=== PATIENT | female | born 1945 | race Caucasian/White ===

== ENCOUNTER 2021-08-21 02:21 | Inpatient (IN) | payer MEDICARE ==
[~2021-08-21] VITALS: Ht 162.6 cm; Wt 79.8 kg
[~2021-08-21 02:21] MED LIST: AMOCLA875 PO; ASPI325EC PO; ASPI81EC PO; Aldactone25 MG PO; BUDE6HFA; CYCL0.05OP; FLUC100 PO; FURO40; GABA600 PO; HYDCHL25 PO; HYDMOR4; KETO10 PO; LISHYD2025 PO; LOSA50; METO10; Metoprolol Tar100 MG PO; NASACORT10.8 ML; NYST100SU MT; PENVK500 PO; POTA10T PO; POTCHL20ER; PROM25 PO; SPIR25 PO; TAMO20 PO; Toradol10 MG PO; ZOLP10 PO; [UNRECOGNIZED DRUG - REMARK]
[2021-08-21 02:48] LABS: BASOPHILS ABSOLUTE AUTO 0.02 K/mm3 (0.00-0.23); BASOPHILS PERCENT AUTO 0 % (0-2); EOSINOPHILS ABSOLUTE AUTO 0.05 K/mm3 (0.00-0.68); EOSINOPHILS PERCENT AUTO 0 % (0-6); Hematocrit 43.5 % (33.0-51.0); Hemoglobin 14.6 g/dL (11.5-16.0); IMMATURE GRAN ABSOLUTE AUTO 0.04 K/mm3 (0.00-0.10); IMMATURE GRAN PERCENT AUTO 0 % (0-1); LYMPHOCYTES ABSOLUTE AUTO 1.27 K/mm3 (0.84-5.20); LYMPHOCYTES PERCENT AUTO 9 % (21-46); MONOCYTES ABSOLUTE AUTO 0.78 K/mm3 (0.16-1.47); MONOCYTES PERCENT AUTO 6 % (4-13); Mean Corpuscular HGB 32.6 pg (26.0-34.0); Mean Corpuscular HGB Conc 33.6 g/dL (31.5-36.5); Mean Corpuscular Volume 97 fL (80-100); Mean Platelet Volume 10.4 fL (9.1-12.4); NEUTROPHILS PERCENT AUTO 85 % (41-73); Platelet Count 204 K/mm3 (150-400); RDW Coefficient Variation 12.5 % (11.7-14.2); RDW Standard Deviation 44.8 fL (35.1-46.3); Red Blood Cell Count 4.48 M/mm3 (3.80-5.20); White Blood Cell Count 14.06 K/mm3 (4.00-11.30)
[2021-08-21 03:08] LABS: Albumin, Blood 3.7 g/dL (3.4-5.0); Albumin/Globulin Ratio 1.1 (0.8-1.8); Bilirubin, Total 1.2 mg/dL (0.1-1.0); Bun/Creatinine Ratio 23.8 (12.0-20.0); Calcium, Blood 9.5 mg/dL (8.5-10.1); Creatinine, Blood 0.88 mg/dL (0.40-1.00); Globulin, Blood 3.4 g/dL (2.2-4.0); Total Protein, Blood 7.1 g/dL (6.4-8.2)
[2021-08-21 06:53] LABS: Source, Urine Clean Catch
[2021-08-21 07:03] LABS: Blood, Urine 1+ (Neg); Glucose Qualitative, Urine Neg (Neg); Ketones, Urine Neg (Neg); Leukocyte Esterase, Urine Neg (Neg); Nitrite, Urine Neg (Neg); Protein, Urine 2+ (Neg); Urobilinogen, Urine 1+ (Normal)
[2021-08-21 07:20] LABS: Appearance, Urine Hazy (Clear); Bilirubin, Urine 1+ (Neg); Color, Urine Yellow (P-Yellow)
[2021-08-21 07:21] LABS: Amorphous Heavy (0-Heavy); Bacteria Few /hpf; Red Blood Cells, Urine 0-2 /hpf (0-2); Squamous Epithelial Cells Few /hpf (Few)
[2021-08-21] MEDS ORDERED: ATORVASTATIN CA20 MG PO (09:48)
--- NOTE | 2021-08-21 16:48 | NUR ---
ADMISSION/SHIFT SUMMARY: PT IS NEW ADMIT F/ER ARRIVING APPROX 0830 THIS AM. PT ARRIVES ALERT, ORIENTED TO SELF, LOCATION, SITUATION. PT ANSWERING QUESTIONS APPROPRIATELY, RAMBLES AT TIMES WITH SOME DIFFICULTY RECALLING WORDS. R SIDE WEAKNESS NOTED. L ABOVE KNEE AMPUTATION W/PROSTHETIC IN ROOM. O2 SATS >92% ON RA, PT DENIES SOB. 70s AND SR ON MONITOR. PT REPORTS MILD CHEST PAIN THAT APPEARS TO BE REPRODUCED WITH PALPATION. 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 DR MORGAN TO BEDSIDE TO DISCUSS HEAD CT RESULTS AND PLAN OF MRI (COMPLETED TODAY). ECHO COMPLETED AT BEDSIDE. PT UP [place] [facility] [place]3 PERSON ASSIST FOR VOIDING ATTEMPTS. PT VOIDS MINIMAL AMOUNT, BLADDER SCAN REVEALS APPROX 440ML, PT DENIES CATHETER PLACEMENT THUS FAR. ST/PT/OT EVALS ALL COMPLETED. AT THIS TIME, PT RESTING IN BED WITH LIGHTS LOW AND FAMILY AT BEDSIDE, CALL LIGHT WITHIN REACH. WILL CONTINUE TO MONITOR AND TREAT ACCORDINGLY UNTIL CHANGE OF SHIFT. BEDSIDE. DR MORGAN TO BEDSIDE TO DISCUSS HEAD CT RESULTS
--- NOTE | 2021-08-22 00:38 | NUR ---
UPDATE NEURO REASSESSMENT PERFORMED D/T SMALL CHANGE IN PREVIOUS ASSESSMENT. PATIENT ALERT BUT HER EYES ARE DROOPIER THAN INITIAL ASSESSMENT AND EYES ARE FIXED FORWARD. PUPILS ARE EQUAL AND REACTIVE. 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 PATIENT WAS GIVEN HOME DOSE OF 10MG AMBIEN AT BEDTIME. NO CHANGES TO VITAL SIGNS. PATIENT TOLERATING RA WITH O2 SAT >90%. CALL PLACED TO HOSPITALIST REGARDING CHANGES, ORDER RECIEVED TO DECREASE BEDTIME DOSAGE. HOSPITALIST ALSO MADE AWARE OF PATIENT RETAINING URINE AND D/T WEAKNESS AND 3 PEOPLE MAX ASSIT TO GET PATIENT OOB, DELEON CATHETHER ORDER RECIEVED.
[2021-08-22 01:10] LABS: Source, Urine Foley catheter
[2021-08-22 01:14] LABS: Appearance, Urine Hazy (Clear); Bilirubin, Urine Neg (Neg); Blood, Urine Neg (Neg); Color, Urine Yellow (P-Yellow); Glucose Qualitative, Urine Neg (Neg); Ketones, Urine Neg (Neg); Leukocyte Esterase, Urine Neg (Neg); Nitrite, Urine Neg (Neg); Protein, Urine 1+ (Neg); Specific Gravity, Urine 1.025 (1.003-1.022); Urobilinogen, Urine NORM (Normal)
[2021-08-22 01:33] LABS: Bacteria Many /hpf; Red Blood Cells, Urine 0-2 /hpf (0-2); Squamous Epithelial Cells Rare /hpf (Few); White Blood Cells, Urine 0-2 /hpf (0-5)
[2021-08-22 01:34] LABS: Amorphous Light (0-Heavy)
[2021-08-22 04:26] LABS: BASOPHILS ABSOLUTE AUTO 0.01 K/mm3 (0.00-0.23); BASOPHILS PERCENT AUTO 0 % (0-2); EOSINOPHILS PERCENT AUTO 0 % (0-6); Hematocrit 41.5 % (33.0-51.0); Hemoglobin 13.6 g/dL (11.5-16.0); IMMATURE GRAN ABSOLUTE AUTO 0.05 K/mm3 (0.00-0.10); IMMATURE GRAN PERCENT AUTO 0 % (0-1); LYMPHOCYTES ABSOLUTE AUTO 0.89 K/mm3 (0.84-5.20); LYMPHOCYTES PERCENT AUTO 7 % (21-46); MONOCYTES ABSOLUTE AUTO 0.52 K/mm3 (0.16-1.47); MONOCYTES PERCENT AUTO 4 % (4-13); Mean Corpuscular HGB 32.5 pg (26.0-34.0); Mean Corpuscular HGB Conc 32.8 g/dL (31.5-36.5); Mean Corpuscular Volume 99 fL (80-100); Mean Platelet Volume 10.8 fL (9.1-12.4); NEUTROPHILS ABSOLUTE AUTO 11.08 K/mm3 (1.96-9.15); NEUTROPHILS PERCENT AUTO 88 % (41-73); Platelet Count 193 K/mm3 (150-400); RDW Standard Deviation 47.7 fL (35.1-46.3); Red Blood Cell Count 4.18 M/mm3 (3.80-5.20); White Blood Cell Count 12.55 K/mm3 (4.00-11.30)
[2021-08-22 04:47] LABS: Albumin, Blood 3.3 g/dL (3.4-5.0); Albumin/Globulin Ratio 0.9 (0.8-1.8); Bun/Creatinine Ratio 25.3 (12.0-20.0); Calcium, Blood 9.3 mg/dL (8.5-10.1); Creatinine, Blood 0.87 mg/dL (0.40-1.00); Globulin, Blood 3.6 g/dL (2.2-4.0); Potassium, Blood 4.2 mmol/L (3.5-5.5); Total Protein, Blood 6.9 g/dL (6.4-8.2)
--- NOTE | 2021-08-22 06:16 | NUR ---
SHIFT SUMMARY PATIENT WAKES TO VERBAL STIMULI, ORIENTED x2-3. VSS, PATIENT REMAINS ON RA T/O NIGHT WITH O2 SAT >90%. NO NEW NEUROLOGICAL CHANGES SINCE PREVIOUS NOTE. PATIENT SCHEDULED FOR CT THIS MORNING BUT PATIENT WAS NOT ALERT ENOUGH TO DRINK CONTRAST. NIGHT MANUFACTURING CONTROLS ENGINEER AWARE, WILL PASS ON TO DAY SHIFT RN. DELEON DRAINING DARK YELLOW URINE TO GRAVITY. NO OTHER SIGNIFICANT CHANGES, WILL REPORT TO DAY SHIFT RN
--- NOTE | 2021-08-22 10:56 | NUR ---
Met with pt and Dr. Pleitez, pt is alert, with moments of confusion. Dr. Pleitez explained to the pt and her son Kristofer that pt has a large aortic aneurysm that takes surgical intervention of brain tumors off the table at this time. Pt has elected hospice. She is also requesting comfort care at this time, as she states she realizes she "doesn't have a long time left" she stated. She talks about her children and grandchildren having to live without her and she becomes tearful. This was ongoing through the conversation. She does state she is at peace, that she has no regrets. I did explain more about the hospice benefit, and she states, "Yes, I want to be kept comfortable. Placed comfort orders. CM to place hospice eval with [facility].
--- NOTE | 2021-08-22 12:13 | NUR ---
Pt has a general "opioid" allergy listed in her chart. Spoke to hospital pharmacist and then patient regarding the allergy listing. Although pt is unable to tell this RN which ones she had taken in the past. She states, "I'm allergic to ALL narcotics. They all make me throw up severely". I did offer to call PCP and Dr. Orozco's office, but she declined and said she just won't take any, that she can handle the pain. Comfort Care orders placed with no opiates.
[2021-08-22] MEDS ORDERED: ZOLP10 PO ×2 (15:41→15:42)
--- NOTE | 2021-08-22 16:03 | NUR ---
DISCHARGE: PT TRANSITIONED TO COMFORT CARE TODAY. PT TALKS OFTEN ABOUT WANTING TO GO HOME AND FAMILY MEMBERS STATE THEY CAN CARE FOR HER ALONG WITH HOME HOSPICE BEING ESTABLISHED. DR MORGAN, PALLIATIVE CARE, CARE MANAGEMENT ALL INVOLVED WITH ESTABLISHING PLAN OF CARE. PT CLEARED FOR DISCHARGE, DEPARTS APPROX [id number]. IV ACCESS DC'd WNL. DELEON CATHETER CONTINUES IN PLACE.
--- NOTE | 2021-08-23 08:31 | NUR ---
Late note. Spiritual care visit conducted. Lengthy visit with pt and her dtr, Lidia. Pt talks about , dying and her fears and concerns related to these topics. She is tearful in talking about her spouse, who has Parkinson's and whom she is the caregiver for. She is tearful in talking about the beauty and love of her family and how their lives will be devasted at the loss of her daily presence. We laugh and cry together and I provide space for her to review her life and proudly speak of the characteristics of her spouse, children and grandchildren. I provide gentle direct care counselor and fresh perspectives on how to achieve her goals of "finishing well." I also provide prayer which appeared to be very meaningful even though pt does not subscribe to the typical "protestant" lines of thought. Dtr Lidia is very complimentary of the visit as is the pt. Both admit to feeling encouraged, comforted and "set in a better frame of mind" by spiritual care.
== END 2021-08-22 16:00 | disposition hospice, home (50) | DRG 64 ==
LOC: ER 02:21 → ERHOLD 02:22 → PCU 06:03
PROVIDERS: Emergency Medicine; Family Medicine; ADMIT Internal Medicine
DX: I63.9 Cerebral infarction, unspecified (principal); G93.6 Cerebral edema; I50.22 Chronic systolic (congestive) heart failure; G93.49 Other encephalopathy; D49.6 Neoplasm of unspecified behavior of brain; Z51.5 Encounter for palliative care; Z66 Do not resuscitate; G62.9 Polyneuropathy, unspecified; I71.2 Thoracic aortic aneurysm, without rupture; I11.0 Hypertensive heart disease with heart failure; Z85.3 Personal history of malignant neoplasm of breast; Z90.710 Acquired absence of both cervix and uterus; Z98.890 Other specified postprocedural states; Z90.11 Acquired absence of right breast and nipple; Z85.850 Personal history of malignant neoplasm of thyroid; Z88.6 Allergy status to analgesic agent; Z88.8 Allergy status to other drugs, medicaments and biological substances; Z79.82 Long term (current) use of aspirin; Z79.899 Other long term (current) drug therapy
CPT/HCPCS: 36415; 70450; 70553; 71045; 71260; 74177; 80053; 81001; 82947; 83880; 84484; 85025; 87086; 92610; 93306; 93880; 96374-59; 96375; 97162; 97166; 97530; 99285-25; A9270; A9579; J0456; J0696; J1100; J1650; J2405; J7030; J7050; P9612; Q9967